=== PATIENT | male | born 1975 | race Caucasian/White ===

== ENCOUNTER 2021-06-16 18:00 | Emergency (ER) | payer OTHER, MEDICARE, SELFPAY ==
[2021-06-16 18:21] VITALS: BP 122/79; PULSE 103; RESP 20; TEMP 36.8; O2SAT 97
[2021-06-16 18:35] VITALS: BP 122/79; PULSE 103; RESP 20; TEMP 36.8; O2SAT 97
--- NOTE | 2021-06-16 18:41 | ED.FEVER ---
HPI - Fever General Chief Complaint: Fever Stated Complaint: flu Source: patient, family and RN notes reviewed Mode of arrival: ambulatory Limitations: clinical condition History of Present Illness HPI Narrative: Freddie is a 45-year-old male patient who ambulated into the [facility] accompanied by his . Patient states he was out in the rain missed Wednesday and Wednesday. About 6 PM Wednesday he started having chills fever and feeling very tired. states that the fever was up to 100.8. Patient denies headache, denies sinus congestion denies any other symptoms besides fever and chills. Related Data Home Medications Medication Instructions Recorded Confirmed buspirone 15 mg PO BID 06/16/21 06/16/21 lisinopril 10 mg PO DAILY 06/16/21 06/16/21 metformin 1,000 mg PO BID 06/16/21 06/16/21 sitagliptin [Januvia] 100 mg PO DAILY 06/16/21 06/16/21 venlafaxine 50 mg PO HS 06/16/21 06/16/21 venlafaxine 100 mg PO DAILY 06/16/21 06/16/21 Allergies Allergy/AdvReac Type Severity Reaction Status Date / Time cortisone Allergy Hypertensio Verified 06/16/21 18:33 n tramadol Allergy Nausea Verified 06/16/21 18:33 Review of Systems Review of Systems: CONSTITUTIONAL: + body aches, fever, chills, and sweats. EYES: Denies visual changes, redness, or discharge. ENT: Denies rhinorrhea, congestion, sore throat, or otalgia. CARDIOVASCULAR: Denies chest pain, palpitations, or edema. RESPIRATORY: Denies cough or dyspnea. GASTROINTESTINAL: Denies abdominal pain, nausea, vomiting, or diarrhea. GENITOURINARY: Denies dysuria or hematuria. SKIN: Denies rash, itching, or wounds. MUSCULOSKELETAL: Denies back pain, joint pain, or myalgia. NEUROLOGIC: Denies headache, numbness, tingling, or weakness. PSYCH: Denies depression or anxiety. Exam Narrative: GENERAL: Well-appearing, well-nourished, and in no acute distress. HEAD: Normocephalic, atraumatic. EYES: EOMI. No redness or drainage. Conjunctivae normal. ENT: Mucous membranes pink and moist. Nares clear. No rhinorrhea. TMs normal bilaterally. Throat normal. Uvula midline. NECK: Normal AROM. Supple. No lymphadenopathy. CHEST: No respiratory distress. Clear to auscultation. HEART: Regular rate and rhythm. No murmur appreciated. Normal peripheral pulses. ABDOMEN: Soft, nontender, nondistended, normal active bowel sounds. MUSCULOSKELETAL: No bony tenderness. EXTREMITIES: Normal range of motion. No edema. SKIN: hot, dry, no rash. Capillary refill normal. Normal skin turgor. NEURO: No focal deficits. Alert and oriented x3. Gait steady. PSYCH: Normal affect. No signs of depression or anxiety. Course Vital Signs Vital signs: Vital Signs Temperature 36.8 C 06/16/21 18: Pulse Rate 103 H 06/16/21 18:21 Respiratory Rate 20 06/16/21 18:21 Blood Pressure 122/79 06/16/21 18:21 Pulse Oximetry 97 06/16/21 18:21 Temperature 36.8 C 06/16/21 18:35 Pulse Rate 103 H 06/16/21 18:35 Respiratory Rate 20 06/16/21 18:35 Blood Pressure 122/79 06/16/21 18:35 Pulse Oximetry 97 06/16/21 18:35 Reviewed MDM - Fever MDM Narrative Medical decision making narrative: Influenza swab was negative. Rapid COVID-19 was negative. Patient has no symptoms except for fever and chills. Patient was instructed to continue Motrin and Tylenol for the fever. Patient instructed to increase his fluids. Patient was instructed to follow-up with his primary care physician in 3 days for continued symptoms. Go to the emergency department for high fever unrelieved with medications, confusion, or any emergent symptoms. Differential Diagnosis Differential diagnosis: Likely viral infection, influenza and other Medical Records Attestation: I reviewed the patient's medical records. Lab Data Attestation: I reviewed the patient's lab results. Labs: Lab Results 06/16/21 Range/Units 18:32 POC SARS CoV-2 Ag Negative (Negative) Influenza A Screen Negati
== END 2021-06-16 19:15 | disposition home or self-care (01) ==
PROVIDERS: Emergency Provider Nurse Practitioner Family
DX: B34.9 Viral infection, unspecified (principal); Z20.822 Contact with and (suspected) exposure to COVID-19
CPT/HCPCS: 87426; 87804; 99212; C9803; G0463